=== PATIENT | male | born 1975 | race Two or more races ===

== ENCOUNTER 2016-07-16 14:27 | Emergency (ER) | payer BC, OTHER ==
--- NOTE | 2016-07-16 16:21 | EDDOCDS ---
Physician Documentation [facility] Name: Erick Jones Age: 41 yrs Sex: Male : 1975 Arrival Date: 07/16/2016 Time: 14:27 Bed Private MD: NO PRIMARY PHYSICIAN, . Disposition: 07/16/16 16:12 Discharged to Home/Self Care. Impression: Localized swelling, mass and lump of skin and subcutaneous tissue - PENIS. - Condition is Stable. - Discharge Instructions: Vasectomy, Care After. - Medication Reconciliation form. - Follow up: Jorje Pacheco; When: Call to arrange an appointment; Reason: Wound/Symptom Recheck, Recheck today's complaints, Continuance of care. Follow up: Private Physician; When: Call to arrange an appointment; Reason: Wound/Symptom Recheck, Recheck today's complaints, Continuance of care. - Problem is new. - Symptoms are unchanged. - Notes: Follow up with your surgeon as well as our urology group as directed. Thanks. Historical: - Allergies: no known allergies; - Home Meds: 1. none - PMHx: none; - PSHx: L knee arthroscopy; - Social history: Smoking status: Patient states was never smoker of tobacco. No barriers to communication noted, The patient speaks fluent Faroese. - Family history: Not pertinent. - : The pt / caregiver states he / she is not on anticoagulants. Home medication list is obtained from the patient. - Exposure Risk Screening:: None identified. Vital Signs: 07/16 14:30 BP 151 / 99; Pulse 81; Resp 20; Temp 96.9(O); Pulse Ox 100% on R/A; Weight 88.45 kg / elp 195 lbs (R); Height 5 ft. 10 in. (177.80 cm) (R); 16:19 BP 134 / 90; Pulse 69; Resp 18; Temp 97.3(T); Pulse Ox 96% on R/A; Pain 0/10; ck1 14:30 Body Mass Index 27.98 (88.45 kg, 177.80 cm) elp MDM: 15:10 Financial registration complete. [facility] [place] 15:15 [facility] Payment Agreement was scanned into [employer] and attached to record. ks16 15:22 Pelvis, limited US Ordered. EDMS 16:14 ED course: pt seen and examined by me. S/p vasectomy approx 10 d ago by surgeon in [facility]. per pt surgeon ran into scar tissue as he had descended testes repair bilateral at 5 yo of age. Incisions were extended. This occurred in OR. Since pt developed some swelling and scrotal redness. Was seen 6 d ago at [facility] ED and placed on keflex and scrotal support was placed. swelling has decrased. no reported fevers. pt states he feels much improved until swelling of penile shaft today. no hx of trauma. us reviewed. olayinka and I sw Dr. Adams. No signs of fourniers gangrene. No signs of abscess per us. no fever. Plan - close follow up w surgeon who performed this. also pt wants second opinion - and will refer to office. ml. Signatures: Dispatcher [employer] EDSC Shahriar Henderson MD MD Argelia-Cecily Fountain,RN RN ck1 Cookie Menendez RN RN rs3 Olayinka Gonzalez, PA-C PA-C cc10 Monique Buck, Reg Reg ks16 The chart was reviewed and I authenticate all verbal orders and agree with the evaluation and treatment provided.Corrections: (The following items were deleted from the chart) 15:22 15:06 Scrotal, US+US ordered. EDSC EDSC Attachments: 15:15 [facility] Payment Agreement ks16 MTDD
--- NOTE | 2016-07-16 16:21 | EDDOCDS ---
Nurse's Notes [facility] Name: Erick Jones Age: 41 yrs Sex: Male : 1975 Arrival Date: 07/16/2016 Time: 14:27 Bed PR Private MD: NO PRIMARY PHYSICIAN, . Diagnosis: Localized swelling, mass and lump of skin and subcutaneous tissue-PENIS Presentation: 07/16 14:33 Presenting complaint: Patient states: noticed lump on penis this morning. no pain at rs3 site/with urination. had vasectomy last . follow up visit with surgeon yesterday. Has 5 days of Keflex for swelling/redness symptoms resolved. Adult Sepsis Screening: The patient does not have new or worsening altered mentation. Patient's respiratory rate is less than 22. Systolic blood pressure is greater than 100. Patient has a qSOFA score of 0- Negative Sepsis Screen. Suicide/Homicide risk assessment- the patient denies having any suicidal and/or homicidal ideations and does not present with any other emotional, behavioral or mental health complaints. Status: Patient is not a transaction advisory services manager or dependent. Transition of care: patient was not received from another setting of care. 14:33 Acuity: GAMA Level 4 rs3 14:33 Method Of Arrival: Walkin/Carried/Asstd rs3 Triage Assessment: 14:38 General: Appears in no apparent distress. Pain: Denies pain. HIV screening NA for this rs3 visit Offered previously. Historical: - Allergies: no known allergies; - Home Meds: 1. none - PMHx: none; - PSHx: L knee arthroscopy; - Social history: Smoking status: Patient states was never smoker of tobacco. No barriers to communication noted, The patient speaks fluent Greenlandic. - Family history: Not pertinent. - : The pt / caregiver states he / she is not on anticoagulants. Home medication list is obtained from the patient. - Exposure Risk Screening:: None identified. Screenin:08 Screening information is obtained from the patient. Fall risk: No risks identified. ck1 Assistance ADL's: requires no assistance with activities of daily living. Abuse/DV Screen: The patient / caregiver reports he/she is: not in a situation that causes fear, pain or injury. Nutritional screening: No deficits noted. Advance Directives: Currently, there is no health care proxy. home support is adequate. Assessment: 15:09 General: Appears in no apparent distress, comfortable, Behavior is appropriate for age, ck1 cooperative. Pain: Denies pain. : Denies burning with urination, discharge. Derm: Skin is pink, warm & dry. 16:20 General: Appears in no apparent distress, comfortable, Behavior is appropriate for age, ck1 cooperative. Pain: Denies pain. : Denies discharge, inability to void. Derm: Skin is pink, warm & dry. Vital Signs: 14:30 BP 151 / 99; Pulse 81; Resp 20; Temp 96.9(O); Pulse Ox 100% on R/A; Weight 88.45 kg elp (R); Height 5 ft. 10 in. (177.80 cm) (R); 16:19 BP 134 / 90; Pulse 69; Resp 18; Temp 97.3(T); Pulse Ox 96% on R/A; Pain 0/10; ck1 14:30 Body Mass Index 27.98 (88.45 kg, 177.80 cm) [facility] Vitals: 14:30 Log In Time: July 16, 2016 at 14:28. [facility] ED Course: 14:29 Patient visited by Blanca Pearl PCA. elp 14:29 Patient moved to Waiting elp 14:30 NO PRIMARY PHYSICIAN, . is Private Physician. elp 14:30 Patient visited by Blanca Pearl PCA. elp 14:30 Patient moved to Pre RCE elp 14:38 Triage Initiated rs3 14:39 Patient moved to Triage 1 rs3 14:54 Olayinka Gonzalez PA-C is [facility]. cc10 14:54 Shahriar Henderson MD is Attending Physician. cc10 14:54 Patient visited by Olayinka Gonzalez PA-C. cc10 14:54 Patient visited by Olayinka Gonzalez PA-C. cc10 15:08 Patient moved to TR1 ck1 15:08 The patient / caregiver is instructed regarding the plan of care and ED course. ck1 15:08 No IV's were initiated during this patient's visit. No procedures done that require ck1 assistance. 15:14 Patient moved to [facility] 15:15 [facility] Payment Agreement was scanned into [employer] and attached to record. ks16 15:43 Patient moved to TR1 hgl 15:51 Patient visited by Cecily Finney,RN. ck1 15:55 Patient moved to PR1 / 25 rs3 16:11 Jorje Pacheco is Referral Physician. cc10 Order Results: There are currently no results for this order. Outcome: 16:12 Discharge ordered by Provider. cc10 16:19 Discharge Assessment: Patient awake, alert and oriented x 3. No cognitive and/or ck1 functional deficits noted. Patient verbalized understanding of disposition instructions. patient administered narcotics - no. The following High Risk Discharge criteria are identified: None. Discharged to home ambulatory. Condition: stable. Discharge instructions given to patient, Instructed on discharge instructions, follow up and referral plans. medication usage, Demonstrated understanding of instructions, medications, Pt was receptive of discharge instructions/ teaching. Ultrasound Study completed. Property :Personal belongings accompany Pt. 16:20 Patient left the ED. ck1 Signatures: Cecily Finney,RN RN ck1 Cookie MenendezRN RN rs3 Ly, Medardo hgl Blacna Pearl, CLIENT SERVICE MANAGER CLIENT SERVICE MANAGER elp Olayinka Gonzalez, PA-C PA-C cc10 Monique Buck, Reg Reg ks16 MTDD
--- NOTE | 2016-07-17 09:28 | REP ---
LIMITED PELVIS ULTRASOUND (PENILE): 07/16/2016. Clinical history: The patient noted swelling post vasectomy near the penile tip. Sonographic evaluation of the penis in transverse and longitudinal projections performed. There appears to be some subcutaneous swelling about the glans but is without visible collection or abscess. Internal architecture of the penile shaft is maintained. There are no drainable fluid collections or masses. Impression: 1. Subcutaneous swelling/edema of the distal penile shaft and glans region without drainable abscess collection, mass or other acute finding. Signed by Brendan Johnson MD 07/17/2016 06:57 P
--- NOTE | 2016-07-18 17:21 | EDDOCDS ---
Nurse's Notes [facility] Name: Erick Jones Age: 41 yrs Sex: Male : 1975 Arrival Date: 07/16/2016 Time: 14:27 Bed PR Private MD: NO PRIMARY PHYSICIAN, . Diagnosis: Localized swelling, mass and lump of skin and subcutaneous tissue-PENIS Presentation: 07/16 14:33 Presenting complaint: Patient states: noticed lump on penis this morning. no pain at rs3 site/with urination. had vasectomy last . follow up visit with surgeon yesterday. Has 5 days of Keflex for swelling/redness symptoms resolved. Adult Sepsis Screening: The patient does not have new or worsening altered mentation. Patient's respiratory rate is less than 22. Systolic blood pressure is greater than 100. Patient has a qSOFA score of 0- Negative Sepsis Screen. Suicide/Homicide risk assessment- the patient denies having any suicidal and/or homicidal ideations and does not present with any other emotional, behavioral or mental health complaints. Status: Patient is not a medical staff services coordinator or dependent. Transition of care: patient was not received from another setting of care. 14:33 Acuity: GAMA Level 4 rs3 14:33 Method Of Arrival: Walkin/Carried/Asstd rs3 Triage Assessment: 14:38 General: Appears in no apparent distress. Pain: Denies pain. HIV screening NA for this rs3 visit Offered previously. Historical: - Allergies: no known allergies; - Home Meds: 1. none - PMHx: none; - PSHx: L knee arthroscopy; - Social history: Smoking status: Patient states was never smoker of tobacco. No barriers to communication noted, The patient speaks fluent Slovenian. - Family history: Not pertinent. - : The pt / caregiver states he / she is not on anticoagulants. Home medication list is obtained from the patient. - Exposure Risk Screening:: None identified. Screenin:08 Screening information is obtained from the patient. Fall risk: No risks identified. ck1 Assistance ADL's: requires no assistance with activities of daily living. Abuse/DV Screen: The patient / caregiver reports he/she is: not in a situation that causes fear, pain or injury. Nutritional screening: No deficits noted. Advance Directives: Currently, there is no health care proxy. home support is adequate. Assessment: 15:09 General: Appears in no apparent distress, comfortable, Behavior is appropriate for age, ck1 cooperative. Pain: Denies pain. : Denies burning with urination, discharge. Derm: Skin is pink, warm & dry. 16:20 General: Appears in no apparent distress, comfortable, Behavior is appropriate for age, ck1 cooperative. Pain: Denies pain. : Denies discharge, inability to void. Derm: Skin is pink, warm & dry. Vital Signs: 14:30 BP 151 / 99; Pulse 81; Resp 20; Temp 96.9(O); Pulse Ox 100% on R/A; Weight 88.45 kg elp (R); Height 5 ft. 10 in. (177.80 cm) (R); 16:19 BP 134 / 90; Pulse 69; Resp 18; Temp 97.3(T); Pulse Ox 96% on R/A; Pain 0/10; ck1 14:30 Body Mass Index 27.98 (88.45 kg, 177.80 cm) [facility] Vitals: 14:30 Log In Time: July 16, 2016 at 14:28. [facility] ED Course: 14:29 Patient visited by Blanca Pearl PCA. elp 14:29 Patient moved to Waiting elp 14:30 NO PRIMARY PHYSICIAN, . is Private Physician. elp 14:30 Patient visited by Blanca Pearl PCA. elp 14:30 Patient moved to Pre RCE elp 14:38 Triage Initiated rs3 14:39 Patient moved to Triage 1 rs3 14:54 Olayinka Gonzalez PA-C is [facility]. cc10 14:54 Shahriar Henderson MD is Attending Physician. cc10 14:54 Patient visited by Olayinka Gonzalez PA-C. cc10 14:54 Patient visited by Olayinka Gonzalez PA-C. cc10 15:08 Patient moved to TR1 ck1 15:08 The patient / caregiver is instructed regarding the plan of care and ED course. ck1 15:08 No IV's were initiated during this patient's visit. No procedures done that require ck1 assistance. 15:14 Patient moved to [facility] 15:15 [facility] Payment Agreement was scanned into [employer] and attached to record. ks16 15:43 Patient moved to TR1 hgl 15:51 Patient visited by Cecily Finney,CLARKE. ck1 15:55 Patient moved to PR1 / rs3 16:11 Jorje Pacheco is Referral Physician. cc10 07/17 09:40 Pelvis, limited US Returned. [facility] 22:45 T-Sheet-- Draft Copy was scanned into [employer] and attached to record. klr Order Results: Radiology Order: Pelvis, limited US Test: Pelvis, limited US REASON FOR EXAMINATION: penile abscess vs hematoma ?;Deformity/Swelling; LIMITED PELVIS ULTRASOUND (PENILE): 07/16/2016.; ; Clinical history: The patient noted swelling post vasectomy near the penile; tip.; ; Sonographic evaluation of the penis in transverse and longitudinal projections; performed. There appears to be some subcutaneous swelling about the glans but is; without visible collection or abscess. Internal architecture of the penile shaft; is maintained. There are no drainable fluid collections or masses.; ; Impression:; ; 1. Subcutaneous swelling/edema of the distal penile shaft and glans region; without drainable abscess collection, mass or other acute finding.; ; ; Signed by; Brendan Johnson MD 07/17/2016 06:57 P; Outcome: 07/16 16:12 Discharge ordered by Provider. cc10 16:19 Discharge Assessment: Patient awake, alert and oriented x 3. No cognitive and/or ck1 functional deficits noted. Patient verbalized understanding of disposition instructions. patient administered narcotics - no. The following High Risk Discharge criteria are identified: None. Discharged to home ambulatory. Condition: stable. Discharge instructions given to patient, Instructed on discharge instructions, follow up and referral plans. medication usage, Demonstrated understanding of instructions, medications, Pt was receptive of discharge instructions/ teaching. Ultrasound Study completed. Property :Personal belongings accompany Pt. 16:20 Patient left the ED. ck1 Signatures: Dispatcher [facility] Cecily Finney,RN RN ck1 Cookie Menendez RN RN rs3 Ly, Medardo hgl Patchen, Blanca, CONFERENCE ASSISTANT CONFERENCE ASSISTANT elp Lisa, Olayinka, PA-C PA-C cc10 Monique Buck, Reg Reg ks16 Kenna Avila klr Chart Complete MTDD
--- NOTE | 2016-07-18 17:21 | EDDOCDS ---
Physician Documentation [facility] Name: Erick Jones Age: 41 yrs Sex: Male : 1975 Arrival Date: 07/16/2016 Time: 14:27 Bed Private MD: NO PRIMARY PHYSICIAN, . Disposition: 07/16/16 16:12 Discharged to Home/Self Care. Impression: Localized swelling, mass and lump of skin and subcutaneous tissue - PENIS. - Condition is Stable. - Discharge Instructions: Vasectomy, Care After. - Medication Reconciliation form. - Follow up: Jorje Pacheco; When: Call to arrange an appointment; Reason: Wound/Symptom Recheck, Recheck today's complaints, Continuance of care. Follow up: Private Physician; When: Call to arrange an appointment; Reason: Wound/Symptom Recheck, Recheck today's complaints, Continuance of care. - Problem is new. - Symptoms are unchanged. - Notes: Follow up with your surgeon as well as our urology group as directed. Thanks. Historical: - Allergies: no known allergies; - Home Meds: 1. none - PMHx: none; - PSHx: L knee arthroscopy; - Social history: Smoking status: Patient states was never smoker of tobacco. No barriers to communication noted, The patient speaks fluent Italian. - Family history: Not pertinent. - : The pt / caregiver states he / she is not on anticoagulants. Home medication list is obtained from the patient. - Exposure Risk Screening:: None identified. Vital Signs: 07/16 14:30 BP 151 / 99; Pulse 81; Resp 20; Temp 96.9(O); Pulse Ox 100% on R/A; Weight 88.45 kg / elp 195 lbs (R); Height 5 ft. 10 in. (177.80 cm) (R); 16:19 BP 134 / 90; Pulse 69; Resp 18; Temp 97.3(T); Pulse Ox 96% on R/A; Pain 0/10; ck1 14:30 Body Mass Index 27.98 (88.45 kg, 177.80 cm) elp MDM: 15:10 Financial registration complete. [facility] 15:15 [facility] Payment Agreement was scanned into [employer] and attached to record. ks16 15:22 Pelvis, limited US Ordered. EDMS 16:14 ED course: pt seen and examined by me. S/p vasectomy approx 10 d ago by surgeon in [facility]. per pt surgeon ran into scar tissue as he had descended testes repair bilateral at 5 yo of age. Incisions were extended. This occurred in OR. Since pt developed some swelling and scrotal redness. Was seen 6 d ago at [facility] ED and placed on keflex and scrotal support was placed. swelling has decrased. no reported fevers. pt states he feels much improved until swelling of penile shaft today. no hx of trauma. us reviewed. olayinka and I sw Dr. Adams. No signs of fourniers gangrene. No signs of abscess per us. no fever. Plan - close follow up w surgeon who performed this. also pt wants second opinion - and will refer to office. [facility]. 07/17 22:45 T-Sheet-- Draft Copy was scanned into [employer] and attached to record. klr Signatures: Dispatcher [facility] Shahriar Henderson MD MD Cecily FinneyRN RN ck1 Cookie Menendez,RN RN rs3 Olayinka Gonzalez, PA-C PA-C cc10 Monique Buck, Reg Reg ks16 Kenna Avila klsalvador The chart was reviewed and I authenticate all verbal orders and agree with the evaluation and treatment provided.Corrections: (The following items were deleted from the chart) 07/16 15:22 15:06 Scrotal, US+US ordered. EDNV EDNV Attachments: 15:15 [facility] Payment Agreement ks16 07/17 22:45 T-Sheet-- Draft Copy klr Chart Complete MTDD
--- NOTE | 2016-07-18 17:21 | EDDOCDS ---
Physician Documentation [facility] Name: Erick Jones Age: 41 yrs Sex: Male : 1975 Arrival Date: 07/16/2016 Time: 14:27 Bed Private MD: NO PRIMARY PHYSICIAN, . Disposition: 07/16/16 16:12 Discharged to Home/Self Care. Impression: Localized swelling, mass and lump of skin and subcutaneous tissue - PENIS. - Condition is Stable. - Discharge Instructions: Vasectomy, Care After. - Medication Reconciliation form. - Follow up: Jorje Pacheco; When: Call to arrange an appointment; Reason: Wound/Symptom Recheck, Recheck today's complaints, Continuance of care. Follow up: Private Physician; When: Call to arrange an appointment; Reason: Wound/Symptom Recheck, Recheck today's complaints, Continuance of care. - Problem is new. - Symptoms are unchanged. - Notes: Follow up with your surgeon as well as our urology group as directed. Thanks. Historical: - Allergies: no known allergies; - Home Meds: 1. none - PMHx: none; - PSHx: L knee arthroscopy; - Social history: Smoking status: Patient states was never smoker of tobacco. No barriers to communication noted, The patient speaks fluent Korean. - Family history: Not pertinent. - : The pt / caregiver states he / she is not on anticoagulants. Home medication list is obtained from the patient. - Exposure Risk Screening:: None identified. Vital Signs: 07/16 14:30 BP 151 / 99; Pulse 81; Resp 20; Temp 96.9(O); Pulse Ox 100% on R/A; Weight 88.45 kg / elp 195 lbs (R); Height 5 ft. 10 in. (177.80 cm) (R); 16:19 BP 134 / 90; Pulse 69; Resp 18; Temp 97.3(T); Pulse Ox 96% on R/A; Pain 0/10; ck1 14:30 Body Mass Index 27.98 (88.45 kg, 177.80 cm) elp MDM: 15:10 Financial registration complete. [facility] 15:15 [facility] Payment Agreement was scanned into [employer] and attached to record. ks16 15:22 Pelvis, limited US Ordered. EDMS 16:14 ED course: pt seen and examined by me. S/p vasectomy approx 10 d ago by surgeon in [facility]. per pt surgeon ran into scar tissue as he had descended testes repair bilateral at 5 yo of age. Incisions were extended. This occurred in OR. Since pt developed some swelling and scrotal redness. Was seen 6 d ago at [facility] ED and placed on keflex and scrotal support was placed. swelling has decrased. no reported fevers. pt states he feels much improved until swelling of penile shaft today. no hx of trauma. us reviewed. olayinka and I sw Dr. Adams. No signs of fourniers gangrene. No signs of abscess per us. no fever. Plan - close follow up w surgeon who performed this. also pt wants second opinion - and will refer to office. [facility]. 07/17 22:45 T-Sheet-- Draft Copy was scanned into [employer] and attached to record. klr Signatures: Dispatcher [facility] Shahriar Henderson MD MD Cecily FinneyRN RN ck1 Cookie Menendez,RN RN rs3 Olayinka Gonzalez, PA-C PA-C cc10 Monique Buck, Reg Reg ks16 Kenna Avila klsalvador The chart was reviewed and I authenticate all verbal orders and agree with the evaluation and treatment provided.Corrections: (The following items were deleted from the chart) 07/16 15:22 15:06 Scrotal, US+US ordered. EDMI EDMI Attachments: 15:15 [facility] Payment Agreement ks16 07/17 22:45 T-Sheet-- Draft Copy klr Chart Complete MTDD
== END 2016-07-16 16:20 | disposition home or self-care (01) ==
LOC: M ED 14:27
DX: R22.9 Localized swelling, mass and lump, unspecified (principal); Z98.52 Vasectomy status

== ENCOUNTER → 2018-05-23 | Outpatient (REF) | payer BC | LOC: M SFHCLERA 12:47 | PROVIDERS: ATTEND Physician Assistant | DX: Z20.818 Contact with and (suspected) exposure to other bacterial communicable diseases (principal) ==

== ENCOUNTER → 2020-03-11 | Outpatient (CLI) | payer BC ==
--- NOTE | 2020-03-16 14:04 | REP ---
LEFT RIB SERIES HISTORY: Anterior rib pain. TECHNIQUE: Four views of the right ribs are performed. FINDINGS: No fracture or bone lesion is seen. A PA view of the chest demonstrates no acute infiltrate or other parenchymal abnormalities. An azygos lobe is noted on the right, a normal variant. Heart is normal in size and the mediastinal silhouette is otherwise unremarkable. IMPRESSION: Negative right rib series. MTDD
== END ==
LOC: M WUC 16:11
PROVIDERS: ATTEND Family Medicine Addiction Medicine
DX: R07.81 Pleurodynia (principal)